=== PATIENT | female | born 1985 | race American Indian/Alaskan Native ===

== ENCOUNTER 2018-02-03 00:35 | Emergency (ER) | payer SELFPAY ==
[2018-02-03] MEDS ORDERED: CATAPRES PO ONE (01:20)
[2018-02-03] MEDS ORDERED: CATAPRES ONE (01:21)
[2018-02-03] MEDS ORDERED: ASPIRIN PO ONE (01:25)
[2018-02-03 02:01] LABS: Basophils # (Auto) 0.1 K/mm3 (0.0-0.1); Basophils % (Auto) 0.6 % (0.0-1.8); Eosinophils # (Auto) 0.1 K/mm3 (0.0-0.4); Eosinophils % (Auto) 0.7 % (0.0-4.3); Hematocrit 39.6 % (30.3-42.9); Hemoglobin 13.6 gm/dl (10.1-14.3); Lymphocytes # (Auto) 3.5 K/mm3 (1.2-5.4); Lymphocytes % (Auto) 22.8 % (13.4-35.0); Mean Corpuscular HGB Conc 34 % (30-34); Mean Corpuscular Hemoglobin 32 pg (28-32); Mean Corpuscular Volume 92 fl (79-97); Monocytes % (Auto) 6.5 % (0.0-7.3); Platelet Count 256 K/mm3 (140-440); Red Cell Distribution Width 13.3 % (13.2-15.2)
[2018-02-03 02:08] LABS: BUN/Creatinine Ratio 16; Blood Urea Nitrogen 11 mg/dL (7-17); Calcium 9.3 mg/dL (8.4-10.2); Hemolysis Index 11
--- NOTE | 2018-02-03 03:24 | XRay Report ---
FINAL REPORT PROCEDURE: XR HAND 2V RT TECHNIQUE: Right hand radiographs, AP, lateral, and oblique views. CPT 20879 HISTORY: swollen and painful RT HAND COMPARISON: No prior studies are available for comparison. FINDINGS: Fracture (s) and/or Dislocation(s): None . Alignment: Normal . Joint space(s): Normal . Soft tissues: There is soft tissue swelling of the 1st digit.. Bone mineralization: Normal . Foreign bodies: None . IMPRESSION: There are no fractures or malalignments. There is soft tissue swelling of the 1st digit..
[2018-02-03] MEDS ORDERED: XYLOCAINE 1% 20 mL INFILTRATI ONE (05:15)
[2018-02-03 05:17] VITALS: BP 208/135
[2018-02-03] MEDS ORDERED: XYLOCAINE 2%/ EPI 1:200,000 INFILTRATI ONE (05:23)
[2018-02-03] MEDS ORDERED: BACTRIM DS PO ONE (05:49)
--- NOTE | 2018-02-03 05:50 | Emergency Department Report ---
HPI - General Chief Complaint: Chest Pain - HPI HPI: patient c/o chest pain, right sided, on and off for the past two weeks, pain is sharp, 3/10, without radiation. patient has a history of htn, not compliant with meds. ED Past Medical Hx - Past Medical History Previous Medical History?: No Hx Hypertension: No - Surgical History Past Surgical History?: No - Social History Smoking Status: Never Smoker Substance Use Type: None - Medications Home Medications: Home Medications Medication Instructions Recorded Confirmed Last Taken Type Sulfamethoxazole/Trimethoprim 1 each PO BID #20 tablet 02/03/18 Unknown Rx [Bactrim DS TAB] amLODIPine [Norvasc] 10 mg PO DAILY #30 tab 02/03/18 Unknown Rx ED Review of Systems ROS: Stated complaint: CHEST PAIN Other details as noted in HPI Comment: All other systems reviewed and negative ENT: denies: ear pain Cardiovascular: chest pain. denies: dyspnea on exertion, orthopnea, edema Physical Exam - Physical Exam Vital Signs: Vital Signs 02/03/18 02/03/18 01:00 05:16 Temperature 98.5 F Pulse Rate 93 H 77 Respiratory 20 20 Rate Blood Pressure 192/144 Blood Pressure 208/135 [Left] O2 Sat by Pulse 99 98 Oximetry Physical Exam: - Physical Exam Physical Exam: - General Limitations: No Limitations General appearance: alert, in no apparent distress. - Head Head exam: Present: atraumatic, normocephalic - Eye Eye exam: Present: normal appearance - ENT ENT exam: Present: mucous membranes moist - Neck Neck exam: Present: normal inspection - Respiratory Respiratory exam: Present: normal lung sounds bilaterally. Absent: respiratory distress - Cardiovascular Cardiovascular Exam: Present: normal rhythm. Absent: systolic murmur, diastolic murmur, rubs, gallop - GI/Abdominal GI/Abdominal exam: Present: soft, normal bowel sounds - Extremities Exam Extremities exam: Present: normal inspection - Back Exam Back exam: Present: normal inspection - Neurological Exam Neurological exam: Present: alert, oriented X3 - Psychiatric Psychiatric exam: normal affect and mood - Skin Skin exam: Present: warm right thumb with drainage no tenosynovitis. ED Course Vital Signs 02/03/18 02/03/18 01:00 05:16 Temperature 98.5 F Pulse Rate 93 H 77 Respiratory 20 20 Rate Blood Pressure 192/144 Blood Pressure 208/135 [Left] O2 Sat by Pulse 99 98 Oximetry - Reevaluation(s) Reevaluation #1: 02/03/18 05:49 patient refused i and d. Injected some lidocaine in her thumb she states she will not be able to tolerate the procedure. 02/05/18 17:44 ED Medical Decision Making - Lab Data Result diagrams: 02/03/18 01:43 02/03/18 01:43 Critical care attestation.: If time is entered above; I have spent that time in minutes in the direct care of this critically ill patient, excluding procedure time. ED Disposition Clinical Impression: Cellulitis of right thumb, Hypertension Disposition: - TO HOME OR SELFCARE Is pt being admited?: No Does the pt Need Aspirin: No Condition: Stable Instructions: Cellulitis (ED), Hypertension (ED) Prescriptions: amLODIPine [Norvasc] 10 mg PO DAILY #30 tab Sulfamethoxazole/Trimethoprim [Bactrim DS TAB] 1 each PO BID #20 tablet Referrals: PRIMARY CARE, [Primary Care Provider] - 3-5 Days
[2018-02-03] MEDS ORDERED: APRESOLINE PO ONE (05:51)
== END 2018-02-03 06:24 | disposition home or self-care (01) ==
LOC: ED 00:35
DX: L03.011 Cellulitis of right finger (principal); I10 Essential (primary) hypertension
CPT/HCPCS: 36415; 80048; 84484; 85025; 93005; 93010; 99284

== ENCOUNTER 2018-02-03 14:16 | Emergency (ER) | payer OTHER ==
--- NOTE | 2018-02-03 15:42 | Emergency Department Report ---
Upper Extremity - HPI Chief Complaint: Extremity Injury, Upper Stated Complaint: RIGHT THUMB SWELLING Time Seen by Provider: 02/03/18 15:41 Upper Extremity: Right Thumb Occurred When: 3 Days Mechanism: Unsure Severity: severe Symptoms: Yes Pain with Movement, Yes Deformity, Yes Limited Range of Movement, Yes Swelling Other History: This is a 32-year-old female presents to emergency room with complaints of right thumb swelling and pain 3 days. Patient states she was seen last night but never left due to unable to find a ride patient states she went to check back in to be reevaluated and see if her thumb could be drained. Patient never started the Bactrim that was prescribed by the ER physician last night. Patient denies fever and chills. Patient states the pain is worsening and is more intense. Patient states that the swelling is getting worse as well. Patient states she also did not take her blood pressure medication as well as her BP is high. Patient never left the hospital in order to take any of the medications prescribed yesterday.. ED Review of Systems ROS: Stated complaint: RIGHT THUMB SWELLING Other details as noted in HPI Constitutional: denies: chills, fever Eyes: denies: eye pain, eye discharge, vision change ENT: denies: ear pain, throat pain Respiratory: denies: cough, shortness of breath, wheezing Cardiovascular: denies: chest pain, palpitations Endocrine: no symptoms reported Gastrointestinal: denies: abdominal pain, nausea, diarrhea Genitourinary: denies: urgency, dysuria, discharge Musculoskeletal: denies: back pain, joint swelling, arthralgia Skin: denies: rash, lesions Neurological: denies: headache, weakness, paresthesias Psychiatric: denies: anxiety, depression Hematological/Lymphatic: denies: easy bleeding, easy bruising ED Past Medical Hx - Past Medical History Previous Medical History?: Yes Hx Hypertension: Yes - Surgical History Past Surgical History?: No - Family History Family history: hypertension - Social History Smoking Status: Unknown if ever smoked Substance Use Type: None - Medications Home Medications: Home Medications Medication Instructions Recorded Confirmed Last Taken Type Sulfamethoxazole/Trimethoprim 1 each PO BID #20 tablet 02/03/18 Unknown Rx [Bactrim DS TAB] amLODIPine [Norvasc] 10 mg PO DAILY #30 tab 02/03/18 Unknown Rx Upper Extremity Exam - Exam General: Vital signs noted. No distress. Alert and acting appropriately. Head and Torso: No HEENT Abnormality, No Neck Tenderness, No Chest/Lungs Abnormality, No Abdominal Tenderness, No Back Tenderness Elbow: No Elbow Tenderness, No Normal Range of Motion in Elbow, No Elbow Deformity Forearm: No Forearm Tenderness, No Forearm Deformity, No Pain with Pronation, No Pain with Supination Wrist: No Wrist Tenderness, No Normal ROM in Wrist, No Wrist Deformity, No Snuffbox Tenderness, No Pain with Axial Thumb Compression Hand: Yes Hand Tenderness (right thumb tenderness and swelling. Patient extremely tender and very difficult to examine), Yes Digit Tenderness (right thumb), Yes Digit(s) Deformity ED Course Vital Signs 02/03/18 14:20 Temperature 98.6 F Pulse Rate 77 Respiratory 22 Rate Blood Pressure 182/106 O2 Sat by Pulse 98 Oximetry - Reevaluation(s) Reevaluation #1: After patient able to I&D a little bit but not very much discharge expressed with manipulation. due to the extensive nature of this infection, will discuss with orthopedist further treatment. all labs reviewed from patient's visit earlier today. Patient had an elevated WBC at 15,000. 02/03/18 16:46 Dr. Kim with orthopedics consult for further evaluation of the patient. 02/03/18 17:00 Reevaluation #2: Her Julio at bedside evaluating patient. Dr. Kim recommends transfer to a hand Center for further treatment and possible surgical debridement 02/03/18 17:45 Reevaluation #3: We don't have orthopedist mechatronics engineer at this time we'll discuss with [facility] possibility of transfer. After a long conversation with Dr. Gamboa, Dr. Gamboa accepted patient to be transferred to [facility] for further evaluation 02/03/18 17:40 - I & D Right Upper Anterior Finger Type of Procedure: Simple Blade Size: 11 I & D Procedure: betadine prep, sterile drapes applied, sterile dressing applied Progress: Right thumb cleaned and draped in a sterile fashion. Thumb cleaned with Betadine. Digital block done on the right thumb. Incision made at approximately 0.5 cm in length at the distal anterir surface of thumb. On the palmar side of her thumb minimal discharge removed. Patient unable to tolerate more manipulation due to pain. ED Medical Decision Making - Medical Decision Making Patient is 32-year-old female presented back to the emergency room for a wound reevaluation of her right thumb. It appears that the thumb will require an I&D so an I&D will be done at this visit. Yesterday's ER note reviewed. Labs also reviewed from yesterday. - Differential Diagnosis avon, abscess. cellulitis. Critical care attestation.: If time is entered above; I have spent that time in minutes in the direct care of this critically ill patient, excluding procedure time. ED Disposition Clinical Impression: Kd, Cellulitis of right thumb, Hypertension Disposition: [id number]/[id number] ANOTHER TYPE HLTHCARE Is pt being admited?: No Does the pt Need Aspirin: No Condition: Serious Time of Disposition: 20:04
[2018-02-03] MEDS ORDERED: BACTRIM DS PO ONE (15:49)
[2018-02-03] MEDS ORDERED: XYLOCAINE 2% INFILTRATI ONE (15:49)
[2018-02-03] MEDS ORDERED: BOOSTRIX IM ONE (15:49)
[2018-02-03] MEDS ORDERED: NORVASC PO ONE (15:55)
[2018-02-03] MEDS ORDERED: DILAUDID ONE (17:37)
[2018-02-03] MEDS ORDERED: DILAUDID IM ONE (17:40)
[2018-02-03] MEDS ORDERED: CATAPRES PO ONE (19:04)
[2018-02-03] MEDS ORDERED: CATAPRES ONE (19:05)
[2018-02-03 19:55] VITALS: BP 155/95
[2018-02-03] MEDS ORDERED: ZOSYN/NS 3.375GM/50ML 3.375 GM/50 ML BAG IV SCH (20:00)
== END 2018-02-03 22:00 | disposition other institution (70) ==
LOC: ED 14:16 → EEVIPCON 14:16 → ED 22:00
DX: L03.011 Cellulitis of right finger (principal); I10 Essential (primary) hypertension
CPT/HCPCS: 10060; 87116; 90471; 90715; 96365; 96372; 99284; J1170; J2543